=== PATIENT | female | born 1995 | race Caucasian/White ===

== ENCOUNTER 2017-06-25 21:09 | Emergency (ER) | payer OTHER ==
[2017-06-25] MEDS ORDERED: NS(*) 0.9% 1000 ML BAG 1,000 ML IV ONE (21:23)
--- NOTE | 2017-06-25 21:23 | ER Report ---
History and Physical Time Seen By MD: 21:16 Hx. of Stated Complaint: Pt reporting severe abdominal pain that began at 1900 this evening. Bilateral pain. HPI/ROS CHIEF COMPLAINT: Abdominal pain HISTORY OF PRESENT ILLNESS: This is a 21 year old female. She is having pain in the upper abdomen and sides, worse on left. Started about 1-2 hours ago. Radiates across central upper abdomen. No pain in her back. No fevers or chills. No dysuria, frequency or other urinary changes. Denies constipation, diarrhea, blood in stool or melena. She is not short of breath, no cough. No chest pain. She has a history of needing surgery on a cyst on her left ovary, fells similar, but different location. Last menses end of May. Has a history of pain with ovulation in the past. Has nausea, but no vomiting. No rashes or bruising. No muscle or joint aches. No sick contacts. REVIEW OF SYSTEMS: As above. Allergies: Coded Allergies: Sulfa (Sulfonamide Antibiotics) (Verified Allergy, Unknown, 06/25/17) nickel (Verified Allergy, Unknown, 06/25/17) Home Meds Active Scripts Cephalexin (KEFLEX) 500 Mg Capsule, 500 MG PO TID, #21 CAP 0 Refills Prov:JARED GOLD MD 06/25/17 Reviewed Nurses Notes: Yes Constitutional Vital Sign - Last 24 Hours 06/25/17 06/25/17 06/25/17 06/25/17 21:13 21:14 22:41 22:44 Temp 98.5 Pulse 113 128 Resp 18 B/P (MAP) 137/84 137/84 (101) 127/79 (95) Pulse Ox 99 95 06/25/17 06/25/17 06/25/17 06/25/17 22:49 22:54 22:59 23:00 Pulse 113 101 97 B/P (MAP) 148/111 (123) Pulse Ox 94 94 91 06/25/17 06/25/17 06/25/17 06/25/17 23:04 23:09 23:14 23:19 Pulse 105 117 85 Resp 16 B/P (MAP) 138/82 (100) Pulse Ox 93 92 89 92 O2 Delivery Room Air Intake and Output 06/25/17 06/25/17 06/26/17 15:00 23:00 07:00 Intake Total 1000 ml Balance 1000 ml Physical Exam General Appearance: The patient is alert. No acute distress. Eyes: Pupils are equal, round. No pallor, injection or icterus. ENT: Mucous membranes are moist. Normal oral mucosa. Posterior oropharynx is normal. Neck: Supple and non tender. No lymphadenopathy. Respiratory: Lungs are clear to auscultation. Cardiovascular: Regular rate and rhythm. No murmurs, gallops or rubs. Normal capillary refill. Gastrointestinal: Abdomen has discomfort in upper quadrants bilaterally. No CVA tenderness. Abdomen is soft. Nondistended. No rebound or guarding. No masses or organomegaly. Normal active bowel sounds. Neurological: Alert and oriented x3. No focal neurologic deficits Skin: Warm and dry. No rashes. Musculoskeletal: No tenderness in palpation of the back or thoracic and lumbar spine. DIFFERENTIAL DIAGNOSIS: After history and physical exam, differential diagnosis was considered for abdominal pain including but not limited to gastroenteritis, colitis and urinary tract infection. Medical Decision Making Data Points Result Diagram: 06/25/17214406/25/172144 Laboratory Hematology Test 06/25/17 21:15 06/25/17 21:45 Urine Color Yellow Urine Clarity Cloudy Urine pH 6.0 pH (4.8-9.5) Urine Specific [place] 1.023 Urine Protein Negative mg/dL (NEGATIVE) Urine Glucose (UA) Negative mg/dL (NEGATIVE) Urine Ketones Negative mg/dL (NEGATIVE) Urine Blood Small (NEGATIVE) Urine Nitrite Negative (NEGATIVE) Urine Bilirubin Negative (NEGATIVE) Urine Urobilinogen Negative mg/dL (0.2-1.9) Urine Leukocyte Esterase Small (NEGATIVE) Urine RBC 3 /HPF (0-2/HPF) Urine WBC 7 /HPF (0-5/HPF) Urine Squamous Epithelial Cells Many /LPF (</=FEW) Urine Bacteria Few /HPF (NONE-FEW) Urine Mucus Few /HPF (NONE-FEW) Red Blood Count 4.91 M/uL (4.17-5.56) Mean Corpuscular Volume 84.7 fL (80.0-96.0) Mean Corpuscular Hemoglobin 28.8 pg (26.0-33.0) Mean Corpuscular Hemoglobin Concent 33.9 g/dL (32.0-36.0) Red Cell Distribution Width 13.2 % (11.5-14.5) Mean Platelet Volume 8.3 fL (7.2-11.1) Neutrophils (%) (Auto) 54.7 % (39.4-72.5) Lymphocytes (%) (Auto) 38.0 % (17.6-49.6) Monocytes (%) (Auto) 6.0 % (4.1-12.4) Eosinophils (%) (Auto) 0.7 % (0.4-6.7) Basophils (%) (Auto) 0.6 % (0.3-1.4) Nucleated RBC Relative Count (auto) 0.0 /100WBC Neutrophils # (Auto) 4.2 K/uL (2.0-7.4) Lymphocytes # (Auto) 2.9 K/uL (1.3-3.6) Monocytes # (Auto) 0.5 K/uL (0.3-1.0) Eosinophils # (Auto) 0.1 K/uL (0.0-0.5) Basophils # (Auto) 0.0 K/uL (0.0-0.1) Nucleated RBC Absolute Count (auto) 0.00 K/uL Sodium Level 139 mmol/L (137-145) Potassium Level 4.0 mmol/L (3.5-5.0) Chloride Level 102 mmol/L (98-107) Carbon Dioxide Level 23 mmol/L (22-31) Blood Urea Nitrogen 10 mg/dl (7-18) Creatinine 0.60 mg/dl (0.52-1.04) Glomerular Filtration Rate Calc > 60.0 Random Glucose 85 mg/dl (75-110) Calcium Level 9.6 mg/dl (8.4-10.2) Total Bilirubin 0.5 mg/dl (0.2-1.3) Aspartate Amino Transf (AST/SGOT) 23 U/L (0-35) Alanine Aminotransferase (ALT/SGPT) 33 U/L (0-56) Alkaline Phosphatase 83 U/L (0-126) C-Reactive Protein < 0.5 mg/dl (<1.0) Total Protein 8.6 gm/dl (6.3-8.2) Albumin 4.7 g/dl (3.5-5.0) Amylase Level 57 U/L (0-110) Lipase 73 U/L (23-300) Human Chorionic Gonadotropin, Qual Negative (NEGATIVE) Chemistry Test 06/25/17 21:15 06/25/17 21:45 Urine Color Yellow Urine Clarity Cloudy Urine pH 6.0 pH (4.8-9.5) Urine Specific [place] 1.023 Urine Protein Negative mg/dL (NEGATIVE) Urine Glucose (UA) Negative mg/dL (NEGATIVE) Urine Ketones Negative mg/dL (NEGATIVE) Urine Blood Small (NEGATIVE) Urine Nitrite Negative (NEGATIVE) Urine Bilirubin Negative (NEGATIVE) Urine Urobilinogen Negative mg/dL (0.2-1.9) Urine Leukocyte Esterase Small (NEGATIVE) Urine RBC 3 /HPF (0-2/HPF) Urine WBC 7 /HPF (0-5/HPF) Urine Squamous Epithelial Cells Many /LPF (</=FEW) Urine Bacteria Few /HPF (NONE-FEW) Urine Mucus Few /HPF (NONE-FEW) White Blood Count 7.8 k/uL (4.5-11.0) Red Blood Count 4.91 M/uL (4.17-5.56) Hemoglobin 14.1 g/dL (12.0-16.0) Hematocrit 41.6 % (34.0-47.0) Mean Corpuscular Volume 84.7 fL (80.0-96.0) Mean Corpuscular Hemoglobin 28.8 pg (26.0-33.0) Mean Corpuscular Hemoglobin Concent 33.9 g/dL (32.0-36.0) Red Cell Distribution Width 13.2 % (11.5-14.5) Platelet Count 259 K/uL (150-450) Mean Platelet Volume 8.3 fL (7.2-11.1) Neutrophils (%) (Auto) 54.7 % (39.4-72.5) Lymphocytes (%) (Auto) 38.0 % (17.6-49.6) Monocytes (%) (Auto) 6.0 % (4.1-12.4) Eosinophils (%) (Auto) 0.7 % (0.4-6.7) Basophils (%) (Auto) 0.6 % (0.3-1.4) Nucleated RBC Relative Count (auto) 0.0 /100WBC Neutrophils # (Auto) 4.2 K/uL (2.0-7.4) Lymphocytes # (Auto) 2.9 K/uL (1.3-3.6) Monocytes # (Auto) 0.5 K/uL (0.3-1.0) Eosinophils # (Auto) 0.1 K/uL (0.0-0.5) Basophils # (Auto) 0.0 K/uL (0.0-0.1) Nucleated RBC Absolute Count (auto) 0.00 K/uL Glomerular Filtration Rate Calc > 60.0 Calcium Level 9.6 mg/dl (8.4-10.2) Total Bilirubin 0.5 mg/dl (0.2-1.3) Aspartate Amino Transf (AST/SGOT) 23 U/L (0-35) Alanine Aminotransferase (ALT/SGPT) 33 U/L (0-56) Alkaline Phosphatase 83 U/L (0-126) C-Reactive Protein < 0.5 mg/dl (<1.0) Total Protein 8.6 gm/dl (6.3-8.2) Albumin 4.7 g/dl (3.5-5.0) Amylase Level 57 U/L (0-110) Lipase 73 U/L (23-300) Human Chorionic Gonadotropin, Qual Negative (NEGATIVE) Urinalysis Test 06/25/17 21:15 Urine Color Yellow Urine Clarity Cloudy Urine pH 6.0 pH (4.8-9.5) Urine Specific [place] 1.023 Urine Protein Negative mg/dL (NEGATIVE) Urine Glucose (UA) Negative mg/dL (NEGATIVE) Urine Ketones Negative mg/dL (NEGATIVE) Urine Blood Small (NEGATIVE) Urine Nitrite Negative (NEGATIVE) Urine Bilirubin Negative (NEGATIVE) Urine Urobilinogen Negative mg/dL (0.2-1.9) Urine Leukocyte Esterase Small (NEGATIVE) Urine RBC 3 /HPF (0-2/HPF) Urine WBC 7 /HPF (0-5/HPF) Urine Squamous Epithelial Cells Many /LPF (</=FEW) Urine Bacteria Few /HPF (NONE-FEW) Urine Mucus Few /HPF (NONE-FEW) EKG/Imaging Imaging COMPUTED TOMOGRAPHY ABDOMEN AND PELVIS WITH INTRAVENOUS CONTRAST DATE OF EXAM: 06/25/2017 9:53 PM INDICATION: Upper abdominal and flank pain, worse on left. COMPARISON: None. TECHNIQUE: Contrast enhanced abdomen and pelvis CT performed during the injection of 75 ml of Isovue 370. Sagittal and coronal reconstructions were performed. One of the following dose optimization techniques was utilized in the performance of this exam: Automated exposure control; adjustment of the mA and/or kV according to the patient's size; or use of an iterative reconstruction technique. Specific details can be referenced in the facility's radiology CT exam operational policy. FINDINGS: Lung bases: Clear. Liver and hepatic vasculature: Normal. Gallbladder and bile ducts: Normal. Spleen: Normal. Pancreas: Normal. Adrenals: Normal. Kidneys, ureters and bladder: Normal. Retroperitoneum and aorta: Normal. GI tract, mesentery and peritoneum: Nonacute. Normal appendix. Uterus and adnexa: There is an ovoid mixed fat and fluid density lesion in the right ovary consistent with a teratoma. It measures 1.6 cm in diameter on image 125 series 3. Uterus and left ovary are grossly normal. Bones and soft tissues: No acute abnormality or suspicious lesion. IMPRESSION: 1. No apparent acute abnormality. 2. 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 Recommend nonemergent gynecologic consultation, and yearly follow-up to assess stability if not surgically removed. Dr. Sam discussed this case with JARED GOLD on 06/25/2017 10:56 PM. Report Dictated By: Flynn Sam MD at 06/25/2017 10:44 PM ED Course/Re-evaluation Clinical Indication for ER IV: IV Access ED Course Imaging shows no acute cause for her symptoms. Labs unremarkable other than the urinalysis that suggests urinary tract infection, but could be contamination. Culture ordered and will begin treatment with Cephalexin. Dermoid cyst noted on CT on right ovary and she will follow-up with [facility] for this. Decision to Disposition Date: Jun 25, 2017 Decision to Disposition Time: 23:11 Depart Departure Latest Vital Signs Vital Signs Date Time Temp Pulse Resp B/P (MAP) Pulse Ox O2 Delivery O2 Flow Rate FiO2 06/25/17 23:19 85 16 138/82 (100) 92 Room Air 06/25/17 21:13 98.5 Impression: Primary Impression: Dermoid cyst of right ovary Additional Impression: Urinary tract infection Condition: Improved Disposition: HOME OR SELF-CARE New Scripts Cephalexin (KEFLEX) 500 Mg Capsule 500 MG PO TID, #21 CAP 0 Refills Prov: JARED GOLD MD 06/25/17 Patient Instructions: Ovarian Cyst (ED), Urinary Tract Infection in Women (ED) Additional Instructions: Your urine had changes that suggest a urinary tract infection. We would like to have you take the antibiotic Cephalexin 500mg three times a day for 5 days. A urine culture will be done over the next 48-72 hours. There was a 1.6 cm Dermoid Cyst on the right ovary. You will need to have follow-up with [facility] for further evaluation. Management sometimes requires surgical excision, but current guidelines suggest monitoring to see if there is growth or change. Based on your history with a Dermoid cyst requiring surgery in the past, surgical excision may be more likely needed. Problem Qualifiers Additional Impression: Urinary tract infection Urinary tract infection type: acute cystitis Hematuria presence: without hematuria Qualified Codes: N30.00 - Acute cystitis without hematuria JARED GOLD MD Jun 25, 2017 21:23
[2017-06-25] MEDS ORDERED: ONDANSETRON 4 MG/2 ML VIAL IVP ONE (21:25)
[2017-06-25] MEDS ORDERED: PANTOPRAZOLE SOD 40 MG IV VIAL IVP ONE (21:25)
[2017-06-25 21:52] LABS: PLATELET COUNT, AUTOMATED 259 K/uL (150-450)
[2017-06-25] MEDS ORDERED: IOPAMIDOL 76% 75 ML INFUS BTL 75 ML ONE (22:05)
[2017-06-25] MEDS ORDERED: NS 0.9% 20 ML SDV 40 ML ONE (22:05)
--- NOTE | 2017-06-25 23:01 | RADIOLOGY IMAGING REPORT ---
FACILITY: [facility] PATIENT NAME: Shey De La Rosa : 1995 MR: [id number] V: [id number] EXAM DATE: ORDERING PHYSICIAN: JARED GOLD TECHNOLOGIST: Location[place] [facility] [place] Patient: Shey De La Rosa : 1995 Visit/Account:[id number] Date of Sevice: 06/25/2017 COMPUTED TOMOGRAPHY ABDOMEN AND PELVIS WITH INTRAVENOUS CONTRAST DATE OF EXAM: 06/25/2017 9:53 PM INDICATION: Upper abdominal and flank pain, worse on left. COMPARISON: None. TECHNIQUE: Contrast enhanced abdomen and pelvis CT performed during the injection of 75 ml of Isovue 370. Sagittal and coronal reconstructions were performed. One of the following dose optimization te chniques was utilized in the performance of this exam: Automated exposure control; adjustment of the mA and/or kV according to the patient's size; or use of an iterative reconstruction technique. Spec [facility] details can be referenced in the facility's radiology CT exam operational policy. FINDINGS: Lung bases: Clear. Liver and hepatic vasculature: Normal. Gallbladder and bile ducts: Normal. Spleen: Normal. Pancreas: Normal. Adrenals: Normal. Kidneys, ureters and bladder: Normal. Retroperitoneum and aorta: Normal. GI tract, mesentery and peritoneum: Nonacute. Normal appendix. Uterus and adnexa: There is an ovoid mixed fat and fluid density lesion in the right ovary consistent with a teratoma. It measures 1.6 cm in diameter on image 125 series 3. Uterus and left ovary are g rossly normal. Bones and soft tissues: No acute abnormality or suspicious lesion. IMPRESSION: 1. No apparent acute abnormality. 2. 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 Recommend nonemergent gynecolo gic consultation, and yearly follow-up to assess stability if not surgically removed. Dr. Sam discussed this case with JARED GOLD on 06/25/2017 10:56 PM. Report Dictated By: Flynn Sam MD at 06/25/2017 10:44 PM Report E-Signed By: Flynn Sam MD at 06/25/2017 10:56 PM WSN:[id number]
[2017-06-25] MEDS ORDERED: CEPHALEXIN 500 MG CAP TH 2 CAP/BOTTLE PO ONE (23:10)
[2017-06-25] MEDS ORDERED: CEPH-13 PO (23:16)
[2017-06-25 23:19] VITALS: BP 138/82
== END 2017-06-25 23:28 | disposition home or self-care (01) ==
LOC: ER 21:20
DX: D27.0 Benign neoplasm of right ovary (principal); N30.00 Acute cystitis without hematuria
CPT/HCPCS: 74177; 81001; 82150; 83690; 84703; 85025; 86140; 87088; 96361; 96374; 96375; 99284; C9113; J2405; J7030; J7050; Q9967; 82040; 82247; 82310; 82374; 82435; 82565; 82947; 84075; 84132; 84155; 84295; 84450; 84460; 84520